=== PATIENT | male | born 1940 | race Two or more races ===

== ENCOUNTER → 2023-12-22 09:35 | Outpatient (REF) | payer MEDICARE, OTHER, SELFPAY ==
[2023-12-22 12:13] LABS: Urine Albumin Trace (Neg - Trace); Urine Bilirubin Negative (Negative); Urine Character Very Cloudy (Clear); Urine Color Yellow; Urine Glucose Negative (Negative); Urine Ketone Negative (Negative); Urine Leukocyte 2+ (Negative); Urine Nitrite Positive (Negative); Urine Occult Blood 4+ (Negative); Urine Urobilinogen Negative (Neg - 1+)
[2023-12-22 12:39] LABS: Urine Bacteria Many (Negative)
[2023-12-22 12:41] LABS: Urine White Cell 16-20 /HPF (0-5)
== END ==
LOC: OLABN 09:35
PROVIDERS: ATTENDING PHYSICIAN Student in an Organized Health Care Education/Training Program
DX: R82.90 Unspecified abnormal findings in urine (principal)
CPT/HCPCS: 36415; 81003; 81015; 87077; 87086; 87186